=== PATIENT | female | born 1955 | race Caucasian/White ===

== ENCOUNTER 2018-05-18 06:03 | Inpatient (IN) | payer BC ==
[~2018-05-18 06:03] MED LIST: Buffered Lidocaine 0.9% SYRIN* 5 ML/SYR SYRINGE INTRADERM ONE; Dexamethasone TAB* 4 MG PO ONE; DiMENhydriNATE IV* 50 MG/ML VIAL IV PUSH PRN; Famotidine IV* 10 MG/ML 2 ML (20 mg) IV ONE; Gabapentin CAP(*) 300 MG PO ONE; Morphine VIAL* 4 MG/ML VIAL (1 ml vial) IV PRN; Naloxone* 0.4 MG/ML 1 ML VIAL IV PRN; Ondansetron TAB* 4 MG PO ONE; PROCHLORPERAZINE INJ 5 MG/ML 2 ML VIAL IV PRN; Scopolamine 1.5 mg* PATCH TRANSDERM PRN; Tranexamic Acid 1,000 MG in NS 0.9% 50 ML* (outpatient use) IV SCH; fentaNYL* 50 MCG/ML 2 ML VIAL (100 MCG VIAL) IV PRN; oxyCODONE/Acetamin 5/325 MG* TAB PO PRN
[2018-05-18] MEDS ORDERED: Famotidine IV* 10 MG/ML 2 ML (20 mg) ONE (06:11)
[2018-05-18] MEDS ORDERED: Ondansetron ODT TAB* 4 MG ONE (06:11)
[2018-05-18] MEDS ORDERED: Dexamethasone TAB* 4 MG ONE (06:11)
[2018-05-18] MEDS ORDERED: Clindamycin 900 MG/D5W BAG(*) 900 MG/50 ML BAG IVPB ONE (06:12)
[2018-05-18] MEDS ORDERED: Gabapentin CAP(*) 300 MG ONE (06:12)
[2018-05-18] MEDS ORDERED: fentaNYL* 50 MCG/ML 2 ML VIAL (100 MCG VIAL) ONE ×3 (07:04→09:07)
[2018-05-18] MEDS ORDERED: KETAMINE HCL* 50 MG/ML 10 ML VIAL ONE (07:04)
[2018-05-18] MEDS ORDERED: Midazolam* 1 MG/ML 5 ML VIAL (5 MG) ONE (07:04)
[2018-05-18] MEDS ORDERED: Atracurium* 10 MG/ML 10 ML VIAL ONE (07:09)
[2018-05-18] MEDS ORDERED: Bupivacaine 0.25% EPI 200,000* 30 ML SDV ONE ×2 (07:22→10:22)
[2018-05-18] MEDS ORDERED: Bupivacaine 0.5% SDV PF* 30ML VIAL ONE (08:41)
[2018-05-18] MEDS ORDERED: Glycopyrrolate IV* 0.2 MG/ML 1 ML VIAL ONE (08:41)
[2018-05-18] MEDS ORDERED: EPHEDrine (Pressors)* 50 MG/ML VIAL ONE (08:41)
[2018-05-18] MEDS ORDERED: Phenylephrine IV* 40 MCG/ML 10 ML SYRINGE ONE (08:41)
[2018-05-18] MEDS ORDERED: Propofol* 10 MG/ML 20 ML BTL IV PUSH ONE (08:41)
[2018-05-18] MEDS ORDERED: Lidocaine 2% PF * 5 ML VIAL ONE (08:41)
[2018-05-18] MEDS ORDERED: Morphine VIAL* 10 MG/ML 1 ML VIAL ONE (10:11)
[2018-05-18] MEDS ORDERED: Ketorolac INJ* 30 MG/ML 1 ML VIAL ONE (10:29)
[2018-05-18] MEDS ORDERED: hydrALAZINE IV* 20 MG/ML VIAL ONE (10:31)
[2018-05-18] MEDS ORDERED: Phenylephrine INJ* 10 MG/ML 1 ML VIAL (10 MG) ONE (10:31)
[2018-05-18] MEDS ORDERED: Labetalol IV* 5 MG/ML 20 ML VIAL ONE (10:31)
[2018-05-18] MEDS ORDERED: Ondansetron INJ* 2 MG/ML VIAL IV PRN (10:39)
[2018-05-18] MEDS ORDERED: Cyclobenzaprine TAB* 10 MG PO PRN (10:39)
[2018-05-18] MEDS ORDERED: Bisacodyl SUPP* 10 MG SUPP PR PRN (10:39)
[2018-05-18] MEDS ORDERED: oxyCODONE/Acetamin 5/325 MG* TAB PO PRN (10:39)
[2018-05-18] MEDS ORDERED: Acetaminophen TAB* 325 MG PO PRN (10:39)
[2018-05-18] MEDS ORDERED: diPHENhydraMINE IV* 50 MG/ML 1 ml VIAL (BENADRYL) IV PRN (10:39)
[2018-05-18] MEDS ORDERED: Magnesium Hydroxide LIQ* 30 ML UDC PO PRN (10:39)
[2018-05-18] MEDS ORDERED: Morphine INJ* 4 MG/ML 1 ML SYRINGE (NEW SYRINGE VERSION) IV PRN (10:39)
--- NOTE | 2018-05-18 12:08 | RAD ---
Indication: Postop RIGHT total knee replacement. Comparison: March 02, 2017 Technique: RIGHT knee: AP and crosstable lateral views. Report: Total knee prosthesis in place with normal alignment. No periprosthetic fracture evident. Diffuse soft tissue edema and emphysema. Anterior cutaneous olinda. IMPRESSION: #. Unremarkable immediate postop appearance of RIGHT total knee prosthesis.
[2018-05-18] MEDS: oxyCODONE/Acetamin 5/325 MG* TAB PO PRN ×2 (16:21→21:36)
[2018-05-18] MEDS: ceFAZolin 1 GM in Dextrose (*) 1 GM/50 ML BAG IVPB SCH (17:13)
[2018-05-18] MEDS: Docusate CAP* 100 MG PO SCH (21:37)
[2018-05-18] MEDS: Magnesium Hydroxide LIQ* 30 ML UDC PO SCH (21:37)
[2018-05-18] MEDS: Nicotine Patch Removal NOTE PATCH OFF SCH (21:38)
--- NOTE | 2018-05-18 23:02 | CONS ---
CC: Dr. Celena Griffith* CONSULTATION REPORT: DATE OF CONSULT: 05/18/18 PROVIDER: Laila Krueger NP ATTENDING PHYSICIAN: Dr. Amanda (report dictated by Laila Krueger NP) PRIMARY CARE PROVIDER: Dr. Celena Griffith. REFERRING PHYSICIAN: Dr. Merino. REASON FOR CONSULT: Co-medical management. HISTORY OF PRESENT ILLNESS: Ms. Aguilar is a 63-year-old female with a past medical history of hypertension and osteoarthritis, who underwent a right total knee arthroplasty today with orthopedic surgeon, Dr. Merino. Hospital Medicine was asked to co-medical manage. The patient was seen and evaluated at her bedside where she was found to be sitting up in chair, alert and oriented x3 with family at the bedside. She reports that she feels that she is doing well postoperatively and does report some right knee pain 7/10. She reports otherwise that she feels that she is doing well. She denies any fevers, chills , nausea, vomiting. Reports she is tolerating liquids and food well. PAST MEDICAL HISTORY: 1. Hypertension. 2. Osteoarthritis. 3. Current tobacco abuse. PAST SURGICAL HISTORY: 1. Umbilical hernia repair. 2. Right carpal tunnel release. CURRENT MEDICATIONS: 1. Acetaminophen 650 mg p.o. q.8 hours p.r.n. 2. Apixaban 2.5 mg p.o. b.i.d. 3. Dulcolax suppository p.r.n. 4. Flexeril 5 mg p.o. t.i.d. 5. Colace 100 mg p.o. b.i.d. 6. LR 75 mL an hour. 7. Lactulose 30 mL p.o. q.6 hours p.r.n. constipation. 8. Losartan potassium 50 mg p.o. q.a.m. 9. Morphine 2 mg IV q.2 hours p.r.n. 10. Nicotine patch 21 mg/24 hours. 11. Zofran 4 mg IV q.4 hours p.r.n. 12. Oxycodone HCl 10 mg p.o. q.4 hours p.r.n. 13. Percocet 5/325 mg 1 to 2 tabs p.o. q.4 hours p.r.n. 14. Scopolamine patch q.72 hours. ALLERGIES: PENICILLIN, STATINS. FAMILY HISTORY: Reviewed and noncontributory. SOCIAL HISTORY: The patient currently smokes 1 pack of cigarettes a day. She is a long-term smoker. 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 She lives at home with her , who is her healthcare proxy. Occasional alcohol use. REVIEW OF SYSTEMS: A 14-point of review of systems was performed. All the pertinent positives and negatives as mentioned in the history of present illness , otherwise are negative. PHYSICAL EXAM: Vital Signs: Temperature 97.5, heart rate 83, respirations 22, O2 sat 100% on room air, blood pressure 133/71. General Appearance: A well- developed 62-year-old female sitting up in the chair, alert and oriented x3, in no acute distress. HEENT: Head is normocephalic, atraumatic. Pupils are equal and reactive to light. Oropharynx is clear. Moist mucous membranes. Cardiac: S1, S2. Regular rate and rhythm. No murmurs, rubs, or gallops appreciated. Lungs are clear to auscultation bilaterally. Good aeration throughout. Abdomen: Soft, nontender, nondistended. Normal bowel sounds throughout. Extremities: 2+ DP pulses bilaterally. right knee with boy bandage and cryo unit intact. Extremities are warm and well perfused. Neuro: Alert and oriented x3. No focal deficits noted. ASSESSMENT AND PLAN: Ms. Aguilar is a 63-year-old female with a past medical history of hypertension, tobacco abuse, osteoarthritis, who underwent an elective right total knee arthroplasty today. Hospital Medicine was asked to co -medical manage. 1. Status post right knee total arthroplasty. Postop day 0. Disposition per Dr. Merino's orthopedic team. Pain management. Bowel regimen. PT/OT. 2. Hypertension. Currently normotensive with blood pressures between 120 and 140. We will continue home medication losartan but we will cut this in half and give her 25 mg in the postoperative phase tomorrow morning. She may require her full home dose. This will need to be reevaluated in the morning. 3. Tobacco abuse. Nicotine replacement. 4. DVT prophylaxis. Apixaban 2.5 mg p.o. b.i.d. per Ortho team. DISPOSITION: Per Ortho team. TIME SPENT: Approximately 45 minutes was spent on this consultation. LAILA KRUEGER, RAILS DEVELOPER [id number]/[facility] #: [id number] [facility]ARG[facility] HOSPITALKianna
[2018-05-19] MEDS: ceFAZolin 1 GM in Dextrose (*) 1 GM/50 ML BAG IVPB SCH ×2 (00:16→08:54)
[2018-05-19] MEDS: oxyCODONE/Acetamin 5/325 MG* TAB PO PRN ×4 (02:31→23:51)
[2018-05-19 05:32] LABS: Hematocrit 37 % (35-47); Hemoglobin 12.8 g/dl (12.0-16.0); Platelet Count 225 10^3/ul (150-450)
[2018-05-19 05:47] LABS: EGFR Non-African American 93.7 (>60)
[2018-05-19] MEDS: oxyCODONE TAB* 5 MG TAB PO PRN ×2 (06:06→11:24)
[2018-05-19] MEDS: Nicotine PATCH 21 MG/24 HR* PATCH TRANSDERM SCH (08:56)
[2018-05-19] MEDS: Docusate CAP* 100 MG PO SCH ×2 (08:58→20:39)
[2018-05-19] MEDS: Magnesium Hydroxide LIQ* 30 ML UDC PO SCH ×2 (08:58→20:39)
[2018-05-19] MEDS: Apixaban* 2.5 MG TAB PO SCH ×2 (08:58→20:38)
[2018-05-19] MEDS ORDERED: Losartan TAB* 25 MG PO SCH ×2 (09:00)
--- NOTE | 2018-05-19 09:54 | PN ---
Subjective Date of Service: 05/19/18 Interval History: Pt resting comfortably in chair after participating in PT. Reports that after taking percocet, her leg pain is a dull ache. Says her thinking is "a little fuzzy" in the setting of percocet. Denies chest pain, shortness of breath, N/V/D , abdominal pain, dysuria, dizziness, numbness or tingling of extremities. Objective Active Medications: Acetaminophen (Tylenol Tab*) 650 mg PO Q8H PRN PRN Reason: PAIN OR TEMPERATURE Apixaban (Eliquis) 2.5 mg PO BID [facility] Last Admin: 05/19/18 08:58 Dose: 2.5 mg Bisacodyl (Dulcolax Supp*) 10 mg MT DAILY PRN PRN Reason: constipation Cyclobenzaprine HCl (Flexeril Tab*) 5 mg PO TID PRN PRN Reason: SPASMS Diphenhydramine HCl (Benadryl Iv*) 25 mg IV Q6H PRN PRN Reason: itching Docusate Sodium (Colace Cap*) 100 mg PO BID [facility] Last Admin: 05/19/18 08:58 Dose: 100 mg Lactated Ringer's (Lactated Ringers 1000 Ml Bag*) 1,000 mls @ 75 mls/hr IV PER RATE [facility] Last Admin: 05/19/18 04:10 Dose: 75 mls/hr Lactulose (Lactulose*) 30 ml PO Q6H PRN PRN Reason: constipation Magnesium Hydroxide (Milk Of Magnesia Liq*) 30 ml PO BID [facility] Last Admin: 05/19/18 08:58 Dose: 30 ml Magnesium Hydroxide (Milk Of Magnesia Liq*) 30 ml PO Q6H PRN PRN Reason: constipation Morphine Sulfate (Morphine Inj (Syringe)*) 2 mg IV Q2H PRN PRN Reason: PAIN - SEVERE Nicotine (Nicotine Patch 21 Mg/24 Hr*) 1 patch TRANSDERM DAILY@0800 [facility] Last Admin: 05/19/18 08:56 Dose: 1 patch Ondansetron HCl (Zofran Inj*) 4 mg IV Q6H PRN PRN Reason: nausea Oxycodone HCl (Roxycodone Tab*) 10 mg PO Q4H PRN PRN Reason: PAIN - SEVERE Last Admin: 05/19/18 06:06 Dose: 10 mg Oxycodone/Acetaminophen (Percocet 5/325 Tab*) 1 tab PO Q4H PRN PRN Reason: PAIN Last Admin: 05/19/18 09:01 Dose: 1 tab Oxycodone/Acetaminophen (Percocet 5/325 Tab*) 2 tab PO Q4H PRN PRN Reason: PAIN Last Admin: 05/19/18 02:31 Dose: 2 tab Pharmacy Profile Note (Scopolamine Patch Remove*) 1 note PATCH OFF Q72H ONE Stop: 05/21/18 05:41 Pharmacy Profile Note (Nicotine Patch Removal Note*) 1 note PATCH OFF [address] [place] Last Admin: 05/18/18 21:38 Dose: Not Given Vital Signs - 8 hr 05/19/18 05/19/18 05/19/18 02:00 02:31 04:11 Temperature Pulse Rate Respiratory 16 16 Rate Blood Pressure (mmHg) O2 Sat by Pulse 98 Oximetry 05/19/18 05/19/18 05/19/18 04:14 06:06 07:30 Temperature 98.4 F 98.0 F Pulse Rate 67 60 Respiratory 16 16 18 Rate Blood Pressure 95/79 114/54 (mmHg) O2 Sat by Pulse 100 100 Oximetry 05/19/18 05/19/18 05/19/18 08:00 08:57 09:01 Temperature Pulse Rate Respiratory 18 18 18 Rate Blood Pressure (mmHg) O2 Sat by Pulse 100 Oximetry Oxygen Devices in Use Now: None Eyes: No Scleral Icterus, PERRLA Ears/Nose/Mouth/Throat: NL Teeth, Lips, Gums, Clear Oropharnyx, Mucous Membranes Moist Neck: NL Appearance and Movements; NL JVP, Trachea Midline Respiratory: Symmetrical Chest Expansion and Respiratory Effort, Clear to Auscultation Cardiovascular: NL Sounds; No Murmurs; No JVD, RRR, No Edema Abdominal: NL Sounds; No Tenderness; No Distention Lymphatic: No Auricular Adenopathy Extremities: No Edema, No Clubbing, Cyanosis, - - 2+ DP pulses bilaterally. Able to dorsiflex and plantarflex Skin: No Rash or Ulcers Neurological: Alert and Oriented x 3, NL Sensation, NL Muscle Strength and Tone Lines/Tubes/Other Access: Clean, Dry and Intact Peripheral IV Nutrition: Taking PO's Result Diagrams: 05/19/18 04:59 05/19/18 04:59 Assess/Plan/Problems-Billing Assessment: Pt is a 63 year old female with a PMH HTN, osteoarthritis and tobacco abuse (30 pack year hx) s/ps RIGHT total knee replacement with Dr. Merino on 05/18. POD 1. - Patient Problems (1) Status post total right knee replacement Current Visit: Yes Status: Acute Code(s): Z96.651 - PRESENCE OF RIGHT ARTIFICIAL KNEE JOINT SNOMED Code(s): 7510046651992 Comment: - w/ Dr Merino. POD 1. Plan per ortho. - Pain adequately controlled with Percocet. Continue bowel regimen - H/H 12. today. Will continue to trend H/H. - PT following (2) Hypertension Current Visit: Yes Status: Acute Code(s): I10 - ESSENTIAL (PRIMARY) HYPERTENSION SNOMED Code(s): 27705610 Comment: - Pt has history of HTN on losartan. Losartan being held as BP this morning was 95/79 in the setting of recent surgery/volume loss as well as opioid administration. Most recent BP 114/54. Pt encouraged to increase PO fluid intake. (3) Tobacco abuse Current Visit: Yes Status: Acute Code(s): Z72.0 - TOBACCO USE SNOMED Code( s): 434298576 Comment: - 30 pack year history (4) DVT prophylaxis Current Visit: Yes Status: Acute Code(s): AIC4138 - SNOMED Code(s): 325302156 Comment: - Pt is anticoagulated with eliquis 2.5mg PO BID per ortho (5) Full code status Current Visit: Yes Status: Acute Code(s): Z78.9 - OTHER SPECIFIED HEALTH STATUS SNOMED Code(s): 966083796 Status and Disposition: Plan per primary team Attending: José Miguel Salgado
--- NOTE | 2018-05-19 10:02 | PN ---
Progress Note - Progress Note Date of Service: 05/19/18 SOAP: Subjective: Has been up and walking with PT and nursing. Objective: RLE: - Dressing c/d/i - NVID X-rays from PACU: components well placed Selected Entries 05/19/18 07:30 Temperature 98.0 F Pulse Rate 60 Respiratory 18 Rate Blood Pressure 114/54 (mmHg) O2 Sat by Pulse 100 Oximetry Laboratory Tests 05/19/18 05/19/18 04:59 04:59 Hct 37 Glucose 117 H Assessment: POD 1 R TKA Plan: - Eliquis, SCDs, PT, pain control, antibiotics, PT, OOB, dispo planning - I want Keflex x 5 days for infection prophylaxis because of patient's smoking history - Nicotine patch
[2018-05-19] MEDS: Cephalexin CAP* 500 MG PO SCH ×2 (13:48→20:39)
[2018-05-19] MEDS: Nicotine Patch Removal NOTE PATCH OFF SCH (20:40)
[2018-05-20] MEDS: oxyCODONE/Acetamin 5/325 MG* TAB PO PRN ×2 (03:52→08:14)
--- NOTE | 2018-05-20 05:17 | OP ---
OPERATIVE NOTE: DATE OF OPERATION: 05/18/18 DATE OF : 55 SURGEON: Dr. Alvarado Merino. BOARDING SPECIALIST: EVELYN Ray A physician student assistant was required for the length of the procedure for assistance with positioning, r etraction, instrumentation, and closure. ANESTHESIOLOGIST: Dr. Omega Middleton. ANESTHESIA: General anesthesia, regional anesthesia, local anesthesia. Local anesthesia was 0.25% r opivacaine with epinephrine 40 cc, placed within the joint capsule and in the subcutaneous tissues ab out the skin incision. Regional anesthesia performed by Dr. Middleton was either femoral or an adducto r canal block. PRE-OP DIAGNOSIS: Right knee osteoarthritis. POST-OP DIAGNOSIS: Right knee osteoarthritis. OPERATIVE PROCEDURE: Right total knee arthroplasty. ANTIBIOTICS: Clindamycin 900 mg IV. IV FLUIDS: 2000 cc of crystalloid. ANTI-BLEEDING AGENT: 1 g tranexamic acid provided, IV, just prior to incision. TOURNIQUET TIME: 120 minutes at 300 mmHg. [id number]-OT-DQDL TIME: 126 minutes. PATHOLOGY: Bone and cartilage samples sent to Pathology. URINE OUTPUT: 600 cc. ESTIMATED BLOOD LOSS: 50 cc. COMPLICATIONS: None. IMPLANTS: DePuy Sedrick and Sedrick Attune total knee arthroplasty, cruciate retaining. Femoral cru ciate retaining, size 3, cemented. Tibia, fixed bearing, size 1, cemented. Tibial insert was size 1 0 mm. Patella a 32 mm, medialized. For cement, we used Emma Palacos cement. 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 The patient had suffered pain for 10 years, insufficiently responsive to the full spectrum of treatment, nonoperatively. The patient o pted to have the right knee replaced first. Preoperatively, discussed risks and potential complications of surgery including bleeding, infection, nerve or blood vessel injury, knee stiffness, pain, need for revision surgery, blood clots. DESCRIPTION OF PROCEDURE: The patient signed a written consent in preoperative holding. Operative e xtremity was marked in preoperative holding. Dr. Middleton performed a regional nerve block in preoper ative holding. The patient was taken back to the operating room and placed supine on the operating room table. Gene ral anesthesia was induced. A lateral post was placed along the bed to keep the right lower extremit y in the neutral position. Tourniquet was placed about the right proximal thigh. The right lower ex tremity was prepped and draped with chlorhexidine and then ChloraPrep. Draping was performed. Surgical time-out was performed. The patient's right lower extremity had been placed in a [facility] Kn ee Positioner. Esmarch was applied and the tourniquet was elevated to 300 mmHg. Anterior midline longitudinal skin incision was made. I changed knives and dissected down to the ext ensor mechanism. I marked and then made a right knee medial parapatellar arthrotomy. I fully extended the knee and peeled the anterior capsule off the medial and lateral tibial plateau. Flexed knee to 90 degrees. Removed the ACL. Noted tricompartmental severe osteoarthritis. There w ere particularly large osteophytes along the medial aspect of the medial femoral condyle that clearly increased the length of the medial femoral condyle. Marked canal point with Bovie electrocautery. Removed large osteophytes with rongeur. Drilled the femur with the drill set on ream. Irrigation and aspiration of canal. Distal femoral cut ting guide placed. A pin guide was placed and then removed 9 mm of the distal end of the femur. Sized the femur to a size of 3. I used 4-in-1 cutting guide and I really liked the size of my cuts, anterior to posterior and medial to lateral for sizing. I next placed the external cutting guide for the tibia. All bony prominences marked with a pen. I r emoved approximately 4 mm from the low side, the medial tibial plateau. This much of a cut was requi red to get below the lowest, most sclerotic part of the medial tibial plateau. I confirmed the adequ acy of the cone alignment of my cut several times. I made tibial bone cut after retractors have been placed. I next removed the medial and lateral meniscus with Bovie electrocautery. I removed the posterior os teophytes from the posterior aspect of the distal femur. I next placed a Dogbone sizing guide. An 8 or 10 mm seemed the appropriate bone blocks and showed sy mmetric flexion and extension gaps. I next placed the trial femoral component and drilled the femur. I next sized the tibia to a size 1. I pinned the #[address] I reamed and then punched the tibia. I next fully extended the knee, the patient's patella was quite thin to start, approximately 19 mm de ep. I cut the patella to a depth somewhere between 12 and 13 mm. I sized the patella to a size 32 m m implant. I made holes in the bone. I placed my patella. I debrided some lateral patella with eduardo scott to prevent bony impingement. I placed all trial components and I liked the soft tissue balance of the knee. I mixed cement. Irrigated the knee. I placed bone into the femoral canal to minimize bleeding. I p laced the cement and then components. I placed a 10-mm trial insert while the cement was hardening. After the cement had fully hardened, I irrigated the knee slightly. I then trialed with a 10 and a 12-mm trial. I liked the balance better with the 10-mm. There was still excellent tension in medial and lateral collateral ligaments, excellent range of motions, 0 to 130 degrees, good stability. We then placed the final 10-mm polyethylene component. Irrigation of the knee. Closure of the medial parapatellar arthrotomy with multiple [id number] stitches using Ethibond 0 and then Vicryl 0 suture. Irrigation. Closure of the subcutaneous tissue w ith buried simple stitches using Vicryl 2.0 suture. Closure of the skin with olinda. The tournique t was dropped at 120 minutes. Prior to closure of the arthrotomy, I placed 30 cc of local about the capsule around the knee. Just after closure of the skin, I placed an additional 10 cc of 0.25% ropivacaine with epinephrine. After the staple closure of the skin. I placed a Xeroform, 4x4's, ABD, sterile Webril, and then Naga b andages. We followed this with a cooling unit. The patient was awakened and extubated and taken to the PACU. DISPOSITION: The patient was admitted postoperatively. The patient is to start Eliquis 2.5 mg p.o. b.i.d. the morning following surgery for DVT prophylaxis. Percocet and morphine as needed for pain co ntrol. Physical therapy immediately with weight-bearing as tolerated. Ancef 1 g IV q.8 hours x24 ho urs was supplied. I also wanted an additional 5 days of Keflex because of the patient's voracious smo mary jo habit that predisposes her to a surgical site infection. The patient tolerated Ancef IV postope ratively despite some question of penicillin sensitivity preoperatively. The patient will follow up with me in clinic approximately 14 days postoperatively. She had x-rays in the PACU that showed exce llent placement of components. She will have blood levels checked and vitals monitored postoperative ly. [id number]/[facility] #: [id number]
[2018-05-20 06:17] LABS: Hematocrit 38 % (35-47); Hemoglobin 12.8 g/dl (12.0-16.0); Mean Platelet Volume 8.2 um3 (7.4-10.4); Platelet Count 221 10^3/ul (150-450)
[2018-05-20] MEDS: Nicotine PATCH 21 MG/24 HR* PATCH TRANSDERM SCH (07:10)
[2018-05-20] MEDS: Apixaban* 2.5 MG TAB PO SCH (08:14)
[2018-05-20] MEDS: Cephalexin CAP* 500 MG PO SCH (08:14)
[2018-05-20] MEDS: Docusate CAP* 100 MG PO SCH (08:15)
[2018-05-20] MEDS: Magnesium Hydroxide LIQ* 30 ML UDC PO SCH (08:15)
--- NOTE | 2018-05-20 09:10 | PN ---
Progress Note - Progress Note Date of Service: 05/20/18 SOAP: Subjective: Pt is doing well. Pain is controlled with oral percocet. Doing well with PT. Denies CP/SOB, F/C. Objective: 63 y/o WDWN F NAD, A&Ox3 RLE- dressing changed, inc c/d/i with no sign of infection, calf soft NT, +DF/ PF ankle, +2 DP pulse, SILT distally Vital Signs Temp Pulse Resp BP Pulse Ox 97.7 F 78 18 124/78 98 05/20/18 07:32 05/20/18 07:32 05/20/18 08:14 05/20/18 07:32 05/20/18 07:32 Laboratory Results - last 24 hr 05/20/18 05:45 Hgb 12.8 Hct 38 Plt Count 221 MPV 8.2 Assessment: POD 2 S/P right TKA Plan: Doing well DC to home with VNS today Nicotine patch for smoking cessation keflex x 7 days to prevent infxn percocet for pain eliquis 2.5 q 12 x 4 weeks for dvt prophylaxis F/U 10-14 days post op with Dr. Merino
[2018-05-20 11:24] VITALS: BP 119/59
[2018-05-20] MEDS: oxyCODONE TAB* 5 MG TAB PO PRN (11:27)
--- NOTE | 2018-05-20 22:46 | DS ---
DISCHARGE SUMMARY: DATE OF ADMISSION: 05/18/18 DATE OF DISCHARGE: 05/20/18 ATTENDING SURGEON: Dr. Alvarado Merino* (dictated by EVELYN Fisher). ADMITTING DIAGNOSIS: Status post right total knee arthroplasty for severe right knee osteoarthritis. SECONDARY DIAGNOSES: 1. Hypertension. 2. Osteoarthritis. 3. Current tobacco use. CONSULTATIONS: PT/OT, Medicine. HISTORY OF PRESENT ILLNESS: Ms. Aguilar is a 63-year-old female, who presented to the clinic for right knee pain due to severe osteoarthritis. She failed conservative measures and has therefore agreed to undergo right total knee arthroplasty with Dr. Merino on 05/18/18. HOSPITAL COURSE: Ms. Aguilar [place] [facility] and underwent a right total knee arthroplasty. Postoperatively, she recovered on the short- stay surgical unit. Post day 1, the Garcia was removed, she is able to urinate on her own. She advanced to a regular diet without difficulty. Pain was controlled with oral Percocet and she was restarted on home medications. Labs and vitals remained stable. She was able to weight bear as tolerated on the right lower extremity. She advanced appropriately with physical therapy and occupational therapy. DVT prophylaxis was managed with Eliquis. By postop day 2, she was orthopedically and medically stable to discharge to home with [facility]. PHYSICAL EXAMINATION: General: A 63-year-old well-developed, well-nourished female, in no acute distress. Alert and oriented x3. Vital Signs: Temperature 98.6, pulse 86, respiratory rate 20, O2 saturation 98%, and blood pressure 119/59. Right lower extremity: Dressing is changed. Incision is clean , dry, and intact. No sign of infection. Able to dorsiflex, plantar flex the ankle. +2 DP pulse. Sensation intact to light touch distally. Calf soft and nontender. DISCHARGE CONDITION: Stable. DISCHARGE MEDICATIONS: Home medications continued on discharge to include: 1. Aspirin 81 mg 1 by mouth in the morning. The patient was encouraged to discontinue this while on the Eliquis. 2. Tollhouse 3 fish oil 1 capsule by mouth in the morning. 3. Multivitamin 1 by mouth in the morning. 4. Melatonin 3 mg by mouth at bedtime. 5. Losartan 50 mg 1 by mouth in the morning. 6. Glucosamine 1 capsule by mouth in the morning. 7. Diclofenac 50 mg by mouth in the morning as needed for pain. The patient was told not to take this while on the Eliquis. 8. Vitamin D3 1000 units 1 by mouth in the morning. 9. Tylenol 650 by mouth in the morning as needed. New medications on discharge to include: 1. Eliquis 2.5 mg by mouth twice a day for DVT prophylaxis. 2. Keflex 500 mg by mouth 3 times a day x1 week to prevent infection. 3. Nicotine 21 mg for 24 hours 1 patch transdermal daily. 4. Percocet 5/325 one to two every 4 to 6 hours as needed for pain. DISCHARGE INSTRUCTIONS: The patient is weightbearing as tolerated on the right lower extremity. She should continue physical therapy and occupational therapy as shown and transition to outpatient therapy as soon as possible to call the office for PT script. For wound care, she may shower 3 days postop. No bathing , swimming or submerging the wound. Gentle soap, pat dry, cover with gauze and an Naga wrap. Call the orthopedic office with increased drainage, redness, increased pain or fever greater than 101.5. Go to the ER with shortness of breath, palpitations or chest pain. Diet, regular diet. Increase fluids and fibers to prevent constipation. Use stool softeners as needed and call with no bowel movements within 48 hours. DVT prophylaxis with Eliquis 2.5 mg every 12 hours for 4 weeks. She was instructed not to take the diclofenac or aspirin while on Eliquis. She should continue nicotine patches daily to help with smoking cessation. Keflex 500 mg 1 tab by mouth 3 times a day x7 days postop to prevent infection due to her smoking history. Percocet 5/325 one to two every 4 to 6 hours as needed for pain, MDD of 10. Antibiotics required prior to any dental work. She will follow up with Dr. Merino in 2 weeks at which point, the olinda will be removed. EVELYN FISHER [id number]/[facility] #: [id number] [facility] HOSPITALKianna
[2018-05-21] MEDS ORDERED: Scopolamine PATCH Remove* 1 NOTE MISC PATCH OFF ONE (05:40)
== END 2018-05-20 11:32 | disposition home health service (06) | DRG 302 ==
LOC: AA 06:03 → SSU 10:39
PROVIDERS: ADMIT Orthopaedic Surgery; ATTEND Orthopaedic Surgery
PROC: 0SRC0J9 Replacement of Right Knee Joint with Synthetic Substitute, Cemented, Open Approach (ICD-10-PCS; principal; 2018-05-18 07:30)
DX: M17.0 Bilateral primary osteoarthritis of knee (principal); I10 Essential (primary) hypertension; F17.210 Nicotine dependence, cigarettes, uncomplicated; M25.761 Osteophyte, right knee; E78.5 Hyperlipidemia, unspecified; Z80.42 Family history of malignant neoplasm of prostate; Z88.0 Allergy status to penicillin; Z88.8 Allergy status to other drugs, medicaments and biological substances; Z83.3 Family history of diabetes mellitus; Z82.61 Family history of arthritis; Z82.49 Family history of ischemic heart disease and other diseases of the circulatory system; Z83.49 Family history of other endocrine, nutritional and metabolic diseases; Z79.01 Long term (current) use of anticoagulants; Z79.82 Long term (current) use of aspirin
CPT/HCPCS: 36415; 80048; 85014; 85018; 85049; 88305; 88311; A9270-GY; C1776; J0360; J0690; J1885; J2250; J2270; J2704; J3010; J8540

== ENCOUNTER 2018-07-04 07:11 | Inpatient (IN) | payer BC ==
[~2018-07-04 07:11] MED LIST changes: -Dexamethasone TAB* 4 MG PO ONE; -DiMENhydriNATE IV* 50 MG/ML VIAL IV PUSH PRN; -Famotidine IV* 10 MG/ML 2 ML (20 mg) IV ONE; -Gabapentin CAP(*) 300 MG PO ONE; -Morphine VIAL* 4 MG/ML VIAL (1 ml vial) IV PRN; -Naloxone* 0.4 MG/ML 1 ML VIAL IV PRN; -Ondansetron TAB* 4 MG PO ONE; -PROCHLORPERAZINE INJ 5 MG/ML 2 ML VIAL IV PRN; -Scopolamine 1.5 mg* PATCH TRANSDERM PRN; -fentaNYL* 50 MCG/ML 2 ML VIAL (100 MCG VIAL) IV PRN; -oxyCODONE/Acetamin 5/325 MG* TAB PO PRN
--- OUTSIDE RECORDS SUMMARY | 2018-07-04 07:14 | XMS REPORT | Continuity of Care Document ---
:1955 External Reference #:[id number] Author Name Flor Antonio Care Team Providers Name Role Phone Celena Griffith MD Primary Care Physician Unavailable Payers Type Date Identification Numbers Payment Provider Subscriber Effective: 2017 Policy Number: [id number] [facility] Dee Cordero PayID: [id number] [address] [place] [address] Advance Directives Description No Information Available Problems Description No Information Family History Description No Information Available Social History Type Date Description Comments Sex Unknown Lives With Spouse 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 ETOH Use Denies alcohol use Tobacco Use Start: Unknown Patient is a current smoker, smokes every day Smoking Status Reviewed: 06/21/18 Patient is a current smoker, smokes every day Exercise Type/Frequency Does not exercise Allergies, Adverse Reactions, Alerts Date Description Reaction Status Severity Comments 03/02/2017 Penicillin Active 03/02/2017 Statins Active Medications Medication Date Status Form Strength Qnty SIG Indications Ordering Provider Nicotine 05/20/ Active Patches 21mg/24HR 14unit use 1 Transdermal 2017 24HR s patch F System every 24 Angelique, hours Losartan 0000/ Active Tablets 50mg 1 by mouth Unknown Potassium 0000 every day Tylenol 8 Hour 00/00/ Active Tablets ER 650mg one every Unknown Arthritis Pain 0000 6 hours as needed for pains Naproxen Sodium 0000/ Active Tablets 220mg as needed Unknown 0000 Eliquis 05/20/ Hx Tablets 2.5mg 56tabs Take 1 tab 2017 - every 12 F 1114/ hours x 4 Angelique, 2018 weeks Percocet 05/20/ Hx Tablets 5-325mg 30tabs 1 tabs by M17.11 Alvarado 2017 - mouth F 06/20/ every 6 Angelique, 2018 hours as MD needed pain Cephalexin 05/20/ Hx Tablets 500mg 21tabs take 1 by Alvarado 2017 - mouth F 05/27/ three Angelique, 2018 times a MD day x 7 days Diclofenac / Hx Tablets DR 50mg Crepet, Sodium 0000 - MD Celena 2017 Bupropion HCL / Hx Tablets ER 150mg Take 1 Unknown ER (XL) 0000 - 24HR Tablet By Mouth 2018 Daily For 1 Week Then Increase To 2 Tablets Kaye Diclofenac / Hx Tablets DR 75mg take 1 Unknown Sodium 0000 - tablet 05/08/ twice a 2018 day with food Aspir-81 / Hx Tablets DR 81mg 1 by mouth Unknown 0000 - every day 2017 Glucosamine / Hx Capsules 1500Com 2 by mouth Unknown Chondroitin 0000 - every day 1500 Complex 2017 Triamcinolone / Hx Cream 0.5% apply Unknown Acetonide 0000 - twice 05/07/ daily to 2018 the affected area Acetaminophen / Hx Tablets ER 650mg 1 tab by Unknown ER 0000 - mouth as needed 2018 pain Fish Oil / Hx Capsules 1200mg twice a Unknown 0000 - DR day 2017 Vitamin D3 High / Hx Capsules 1000Unit 2 by mouth Unknown Potency 0000 - every day 2017 Multivitamin / Hx Chewtabs once a day Unknown Adult 0000 - 2017 Losartan / Hx Unknown Potassium 0000 - 2017 Diclofenac / Hx Tablets 50mg 1 by mouth Unknown Potassium 0000 - every day 05/07/ as needed 2018 Medications Administered in Office Medication Date Status Form Strength Qnty SIG Indications Ordering Provider Depomedrol Administered Injection Alvarado F 40MG 018 MD Angelique Depomedrol Administered Injection Alvarado F 40MG 018 MD Lionel Merinoomedrol Administered Injection Alvarado F 40MG 017 MD Dionicio Merinorol Administered Injection Alvarado F 40MG 017 MD Angelique Immunizations Description No Information Available Vital Signs Date Vital Result Comment 06/21/2018 1:09pm Height 61 inches 5'1" Weight 155.00 lb Heart Rate 80 /min BP Systolic 138 mmHg BP Diastolic 86 mmHg Respiratory Rate 16 /min Body Temperature 98.8 F Pain Level 0 BMI (Body Mass Index) 29.3 kg/m2 05/29/2018 3:03pm Height 61 inches 5'1" Weight 145.00 lb Heart Rate 88 /min BP Systolic 120 mmHg BP Diastolic 84 mmHg Body Temperature 98.1 F Pain Level 3 BMI (Body Mass Index) 27.4 kg/m2 05/08/2018 8:31am Height 61 inches 5'1" Weight 155.75 lb Heart Rate 78 /min BP Systolic 132 mmHg BP Diastolic 78 mmHg Respiratory Rate 12 /min Pain Level 3 BMI (Body Mass Index) 29.4 kg/m2 03/19/2018 3:51pm Height 61 inches 5'1" Weight 160.00 lb BP Systolic 134 mmHg BP Diastolic 90 mmHg Respiratory Rate 18 /min Body Temperature 98.7 F Pain Level 7 BMI (Body Mass Index) 30.2 kg/m2 11/16/2017 8:09am Height 61 inches 5'1" Heart Rate 77 /min BP Systolic 126 mmHg BP Diastolic 76 mmHg Respiratory Rate 16 /min Body Temperature 97.1 F Pain Level 5 07/11/2017 8:04am Height 61 inches 5'1" Weight 157.00 lb Heart Rate 62 /min Respiratory Rate 16 /min Pain Level 1 BMI (Body Mass Index) 29.7 kg/m2 05/01/2017 2:23pm Height 61 inches 5'1" Weight 160.00 lb Heart Rate 82 /min BP Systolic 149 mmHg BP Diastolic 89 mmHg Pain Level 0 BMI (Body Mass Index) 30.2 kg/m2 03/02/2017 10:52am Height 61 inches 5'1" Weight 161.00 lb BP Systolic 143 mmHg BP Diastolic 87 mmHg Respiratory Rate 15 /min Pain Level 7 BMI (Body Mass Index) 30.4 kg/m2 Results Test Date Facility Test Result H/L Range Note CBC Auto Diff 05/08/2018 [facility] White Blood 7.9 10^3/uL N 3.5-10.[address] [place] [address] [phone] Red Blood Count 4.96 10^6/uL N 4.00-5.40 Hemoglobin 15.3 g/dL N 12.0-16.0 Hematocrit 46 % N 35-47 Mean Corpuscular Volume 92 fL N 80-97 Mean Corpuscular Hemoglobin 31 pg N 27-31 Mean Corpuscular HGB Conc 34 g/dL N 31-36 Red Cell Distribution Width 13 % N 10.5-15 Platelet Count 287 10^3/uL N 150-450 Mean Platelet Volume 8.0 um3 N 7.4-10.4 Abs Neutrophils 5.4 10^3/uL N 1.5-7.7 Abs Lymphocytes 1.9 10^3/uL N 1.0-4.8 Abs Monocytes 0.5 10^3/uL N 0-0.8 Abs Eosinophils 0.1 10^3/uL N 0-0.6 Abs Basophils 0.1 10^3/uL N 0-0.2 Abs Nucleated RBC 0 10^3/uL Granulocyte % 68.2 % N 38-83 Lymphocyte % 24.0 % Low 25-47 Monocyte % 6.0 % N 0-7 Eosinophil % 0.9 % N 0-6 Basophil % 0.9 % N 0-2 Nucleated Red Blood Cells % 0.1 Inr/Protime 05/08/2018 [facility] Inr 0.91 N 0.77-1.[address] [place] [address] [phone] Laboratory test 05/08/2018 [facility] Partial 31.8 seconds N 26.0-36.[address] [place] [address] PTT [phone] Comp Metabolic 05/08/2018 [facility] Sodium 139 mmol/L N 135- [address] [place] [address] [phone] Potassium 3.9 mmol/L N 3.5-5.0 Chloride 103 mmol/L N 101-111 Co2 Carbon Dioxide 29 mmol/L N 22-32 Anion Gap 7 mmol/L N 2-11 Glucose 126 mg/dL High 70-100 Blood Urea Nitrogen 8 mg/dL N 6-24 Creatinine 0.69 mg/dL N 0.51-0.95 BUN/Creatinine Ratio 11.6 N 8-20 Calcium 9.5 mg/dL N 8.6-10.3 Total Protein 6.8 g/dL N 6.4-8.9 Albumin 4.4 g/dL N 3.2-5.2 Globulin 2.4 g/dL N 2-4 Albumin/Globulin Ratio 1.8 N 1-3 Total Bilirubin 0.40 mg/dL N 0.2-1.0 Alkaline Phosphatase 91 U/L N 34-104 Alt 14 U/L N 7-52 Ast 17 U/L N 13-39 Egfr Non- 85.9 >60 Egfr 104.0 >60 1 Type & Screen 05/08/2018 [facility] Patient Blood Type O Positive [address] [place] [address] [phone] Antibody Screen NEGATIVE Urinalysis Profile 05/08/2018 [facility] Urine Color Yellow [address] [place] [address] [phone] Urine Appearance Clear Urine Specific [place] 1.015 N 1.010-1.030 Urine pH 5.0 N 5-9 Urine Urobilinogen Negative Negative Urine Ketones Negative Negative Urine Protein Negative Negative Urine Leukocytes Trace Abnormal Negative Urine Blood Negative Negative Urine Nitrite Negative Negative Urine Bilirubin Negative Negative Urine Glucose Negative Negative Urine White Blood Cell Trace(0-5/hpf) Absent Urine Red Blood Cell Trace(0-2/hpf) Absent Urine Bacteria 1+ Abnormal Absent Urine Squamous Epithelial Cell Present Abnormal Absent Urine Hyaline Casts Present Abnormal Absent Urine Culture And 05/08/2018 [facility] Urine Culture SEE RESULT [address] [place] [address] [phone] 1 Because ethnic data is not always readily available, this report includes an eGFR for both -Americans and non- Americans. The National Kidney Disease Education Program (NKDEP) does not endorse the use of the MDRD equation for patients that are not between the ages of 18 and 70, are , have extremes of body size, muscle mass, or nutritional status, or are non- or non-. According to the National Kidney Foundation, irrespective of diagnosis, the stage of the disease is based on the level of kidney function: Stage Description GFR(mL/min/1.73 m(2)) 1 Kidney damage with normal or decreased GFR 90 2 Kidney damage with mild decrease in GFR 60-89 3 Moderate decrease in GFR 30-59 4 Severe decrease in GFR 15-29 5 Kidney failure <15 (or dialysis) 2 SEE RESULT BELOW Name: DEE CORDERO : [address]: Alvarado Merino MD Acct: [id number] Unit: [id number] AGE: 63 Location: PAT Re05/08/18 SEX: F Status: REG REF SPEC: [id number] DANIEL: 05/08/[address] [facility] DR: Alvarado Merino MD REQ: [id number] RECD: 05/08/18 STATUS: HOLLY CARDOZA DR: Celena Griffith MD _ SOURCE: URINE SPDESC: ORDERED: Urine Culture Procedure Result Reported Site Urine Culture Final 05/09/18- 1253 ML No growth of clinically significant organisms * ML - Main Lab . END OF REPORT DEPARTMENT OF PATHOLOGY, [address] [place] [address] Jon Woodard M.D. Director [facility] # [id number] Procedures Date Code Description Status 05/18/2018 73179 TKR Total Knee Replacement Completed 05/18/201855967 TKR Total Knee Replacement Completed 11/16/201792199 Inject/Drain Joint/Bursa Major W/O US Completed 03/02/201710022 Inject/Drain Joint/Bursa Major W/O US Completed 03/02/201743574 Inject/Drain Joint/Bursa Major W/O US Completed Encounters Type Date Location Provider Dx Diagnosis Office Visit 05/19/2018 [facility] Radha Z96.651 Presence of right 11:59a Assoc,marky Esparza NP artificial knee Hospitalists joint I10 Essential (primary) hypertension Z72.0 Tobacco use Office Visit 05/18/2018 [facility] Laya Z96.651 Presence of 11:59a Assoc,marky Godfrey ROOM MAID right artificial Hospitalists knee joint I10 Essential (primary) hypertension Z72.0 Tobacco use Office Visit 03/19/2018 [facility] M17.0 Bilateral primary 3:30p Services Of MD Angelique osteoarthritis of [facility] knee M25.561 Pain in right knee M25.562 Pain in left knee Office Visit 11/16/2017 [facility] Hight[facility] M17.0 Bilateral primary 8:00a Services Of MD Angelique osteoarthritis of [place] knee Office Visit 07/11/2017 Eric Hightower M17.0 Bilateral primary 8:00a Services Of MD Angelique osteoarthritis of [place] knee Office Visit 05/01/2017 [facility] Alvarado Hightower M17.11 Unilateral primary 2:15p Services Of MD Angelique osteoarthritis, [facility] right knee M17.12 Unilateral primary osteoarthritis, left knee M17.0 Bilateral primary osteoarthritis of knee Office Visit 03/02/2017 [facility] Alvarado Hightower M17.11 Unilateral primary 10:30a Services Of MD Angelique osteoarthritis, [facility] right knee M17.12 Unilateral primary osteoarthritis, left knee Plan of Treatment Future Appointment(s):07/17/2018 1:00 pm - Alvarado Merino MD at [facility]07/04/2018 9:45 am - KIMBERLY Wesley at [facility]07/04/2018 9:45 am - Alvarado Merino MD at [facility]
[2018-07-04] MEDS ORDERED: Buffered Lidocaine 0.9% SYRIN* 5 ML/SYR SYRINGE ONE (08:14)
[2018-07-04] MEDS ORDERED: Clindamycin 900 MG/D5W BAG(*) 900 MG/50 ML BAG IVPB ONE (08:14)
[2018-07-04] MEDS ORDERED: Midazolam* 1 MG/ML 2 ML VIAL (2 MG) ONE (08:57)
[2018-07-04] MEDS ORDERED: fentaNYL* 50 MCG/ML 2 ML VIAL (100 MCG VIAL) ONE ×2 (08:57)
[2018-07-04] MEDS ORDERED: Bupivacaine 0.25% W/EPI* 10 ML SDV ONE ×2 (09:37→12:23)
[2018-07-04] MEDS ORDERED: ROPIVACAINE 5 MG/ML 30 ML BTL (0.5%) ONE (09:50)
[2018-07-04] MEDS ORDERED: Propofol* 10 MG/ML 20 ML BTL ONE (10:14)
[2018-07-04] MEDS ORDERED: Ondansetron INJ* 2 MG/ML VIAL ONE (10:14)
[2018-07-04] MEDS ORDERED: Dexamethasone IV* 4 MG/ML 1 ML (4 MG) ONE (10:14)
[2018-07-04] MEDS ORDERED: EPHEDrine (Pressors)* 50 MG/ML VIAL ONE (10:18)
[2018-07-04] MEDS ORDERED: Acetaminophen TAB* 325 MG PO PRN (11:17)
[2018-07-04] MEDS ORDERED: oxyCODONE TAB* 5 MG TAB PO PRN (11:17)
[2018-07-04] MEDS ORDERED: Naloxone* 0.4 MG/ML 1 ML VIAL IV PRN (11:17)
[2018-07-04] MEDS ORDERED: Ketorolac INJ* 30 MG/ML 1 ML VIAL IV PRN (11:17)
[2018-07-04] MEDS ORDERED: HYDROmorphone INJ1* 1 MG/ML SYRINGE IV PRN (11:17)
[2018-07-04] MEDS ORDERED: HYDROmorphone INJ1* 1 MG/ML SYRINGE ONE (11:46)
[2018-07-04] MEDS ORDERED: Cyclobenzaprine TAB* 10 MG PO PRN (12:52)
[2018-07-04] MEDS ORDERED: Ondansetron INJ* 2 MG/ML VIAL IV PRN (12:52)
[2018-07-04] MEDS ORDERED: diPHENhydraMINE IV* 50 MG/ML 1 ml VIAL (BENADRYL) IV PRN (12:52)
[2018-07-04] MEDS ORDERED: Magnesium Hydroxide LIQ* 30 ML UDC PO PRN (12:52)
[2018-07-04] MEDS ORDERED: Bisacodyl SUPP* 10 MG SUPP PR PRN (12:52)
[2018-07-04] MEDS ORDERED: Polyethylene Glycol 3350* 17 GM PACKET PO PRN (12:52)
[2018-07-04] MEDS ORDERED: Morphine VIAL* 4 MG/ML VIAL (1 ml vial) IV PRN (12:52)
[2018-07-04] MEDS ORDERED: diPHENhydraMINE PO* 25 MG PO PRN (12:52)
[2018-07-04] MEDS ORDERED: Acetaminophen TAB* 325 MG PO SCH (13:00)
[2018-07-04] MEDS ORDERED: oxyCODONE/Acetamin 5/325 MG* TAB ONE (14:30)
[2018-07-04] MEDS: oxyCODONE/Acetamin 5/325 MG* TAB PO PRN ×3 (14:33→22:08)
[2018-07-04] MEDS: Nicotine PATCH 7 MG/24 HR* PATCH TRANSDERM SCH (14:40)
[2018-07-04] MEDS: Nicotine PATCH 7 MG/24 HR* PATCH ONE ×2 (14:40→15:44)
[2018-07-04] MEDS: Acetaminophen TAB* 325 MG PO SCH ×2 (15:19→22:32)
[2018-07-04] MEDS: Clindamycin 600 MG IVPREMIX(* 600 MG/50 ML SDV IV SCH (18:11)
[2018-07-04] MEDS: oxyCODONE TAB* 5 MG TAB PO PRN (19:41)
[2018-07-04] MEDS: Magnesium Hydroxide LIQ* 30 ML UDC PO SCH (22:07)
[2018-07-04] MEDS: Docusate CAP* 100 MG PO SCH (22:07)
[2018-07-04] MEDS: traMADol TAB* 50 MG PO PRN (22:08)
[2018-07-05] MEDS: oxyCODONE TAB* 5 MG TAB PO PRN ×3 (00:11→13:28)
[2018-07-05] MEDS: Clindamycin 600 MG IVPREMIX(* 600 MG/50 ML SDV IV SCH ×2 (02:29→10:17)
[2018-07-05] MEDS: oxyCODONE/Acetamin 5/325 MG* TAB PO PRN ×4 (02:30→15:20)
[2018-07-05 05:29] LABS: Hematocrit 35 % (35-47); Hemoglobin 11.4 g/dl (12.0-16.0); Mean Platelet Volume 7.4 fL (7.4-10.4); Platelet Count 270 10^3/ul (150-450)
[2018-07-05] MEDS: Acetaminophen TAB* 325 MG PO SCH ×2 (05:34→12:30)
[2018-07-05 05:46] LABS: EGFR Non-African American 81.8 (>60)
[2018-07-05] MEDS: traMADol TAB* 50 MG PO PRN ×2 (07:29→13:29)
[2018-07-05] MEDS ORDERED: Apixaban* 2.5 MG TAB PO SCH (09:00)
[2018-07-05] MEDS ORDERED: Losartan TAB* 25 MG PO SCH (09:00)
[2018-07-05] MEDS: Magnesium Hydroxide LIQ* 30 ML UDC PO SCH (09:26)
[2018-07-05] MEDS: Docusate CAP* 100 MG PO SCH (09:26)
--- NOTE | 2018-07-05 11:33 | PN ---
Progress Note - Progress Note Date of Service: 07/05/18 SOAP: Subjective: []Patient seen and examined at bedside. She is feeling quite well with well controlled knee pain. Denies CP, SOB, dizziness, nausea. Objective: []General: Well appearing, NAD LLE: Left knee dressing CDI, cryo unit in use. Thigh is soft, df/pf intact, sensation intact distally, DP2+, capillary refill less than two seconds distally Calves supple and nontender without erythema, edema or palpable cords Assessment: []POD 1 sp left total knee arthroplasty Plan: []WBAT PT/OT eliquis 2.5 mg po BID for [address] Merino 10-14 days Had RTK done 6 weeks ago, familiar with recovery period and feeling very well. She will participate with afternoon PT and decide if she would like to DC home today or tomorrow morning. She strongly desires home PT for a few visits then transition to outpatient, which she did after her RTK as well. Vital Signs Temp 97.8 F 07/05/18 08:19 Pulse 72 07/05/18 08:19 Resp 18 07/05/18 09:39 BP 105/59 07/05/18 08:19 Pulse Ox 99 07/05/18 08:19 Intake & Output 07/04/18 07/05/18 07/05/18 18:59 06:59 18:59 Intake Total 2560 1980 240 Output Total 1900 675 20 Balance 660 1305 220 Weight 156 lb Intake: IV Fluids 2200 990 ABX - CLINDAMYCIN 55 LR 2200 935 Oral 360 990 240 Output: Urine 20 Garcia 1900 675 Other: # Bowel Movements 0 Laboratory Last Values Hgb 11.4 g/dl (12.0-16.0) L 07/05/18 05:19 Hct 35 % (35-47) 07/05/18 05:19 Plt Count 270 10^3/ul (150-450) 07/05/18 05:19 MPV 7.4 fL (7.4-10.4) 07/05/18 05:19 Sodium 136 mmol/L (135-145) 07/05/18 05:19 Potassium 4.3 mmol/L (3.5-5.0) 07/05/18 05:19 Chloride 102 mmol/L (101-111) 07/05/18 05:19 Carbon Dioxide 30 mmol/L (22-32) 07/05/18 05:19 Anion Gap 4 mmol/L (2-11) 07/05/18 05:19 BUN 11 mg/dL (6-24) 07/05/18 05:19 Creatinine 0.72 mg/dL (0.51-0.95) 07/05/18 05:19 Est GFR ( Amer) 99.0 (>60) 07/05/18 05:19 Est GFR (Non-Af Amer) 81.8 (>60) 07/05/18 05:19 BUN/Creatinine Ratio 15.3 (8-20) 07/05/18 05:19 Glucose 119 mg/dL (70-100) H 07/05/18 05:19 Calcium 8.7 mg/dL (8.6-10.3) 07/05/18 05:19
[2018-07-05 13:25] VITALS: BP 121/63
[2018-07-05] MEDS: Nicotine PATCH 7 MG/24 HR* PATCH TRANSDERM SCH ×2 (13:28→14:39)
[2018-07-05] MEDS ORDERED: Nicotine Patch Removal NOTE PATCH OFF SCH (16:00)
--- NOTE | 2018-07-06 13:15 | DS ---
DISCHARGE SUMMARY: DATE OF ADMISSION: 07/04/18 DATE OF DISCHARGE: 07/05/18 ATTENDING ORTHOPEDIC PROVIDER AND SURGEON: Dr. Alvarado Merino.* (DICTATED BY EVELYN CHAVARRIA) HISTORY: Ms. Aguilar is a 63-year-old female with years of left knee pain. She failed conservative management and elected to undergo a left total knee arthroplasty. She had a right total knee arthroplasty successfully 6 weeks ago. HOSPITAL COURSE: The patient was admitted to [facility] on . She underwent a left total knee arthroplasty without complication. Postop day 1, she was well appearing, in no acute distress. Left knee dressing today was changed. Incision clean, dry, and intact. Thigh was soft. Dorsiflexion and plantarflexion intact. Sensation intact distally. DP pulse 2+. Capillary refill less than 2 seconds distally. The patient's blood pressure was soft as low as 99/53. She was given a 1000 mL bolus of LR, which improved her blood pressure to 121/63 at the time of discharge. Other vitals included pulse ox 99 , respiratory rate 18, pulse of 72, and temperature 97.8. Hemoglobin 11.4, hematocrit 35. Sodium 136, potassium 4.3. The patient met her goals of physical therapy and was deemed to be medically and orthopedically stable for discharge to home. DISCHARGE MEDICATIONS: Include: 1. Losartan 50 mg p.o. q.a.m. 2. Acetaminophen 650 mg p.o. q.a.m. p.r.n. 3. Nicotine patch 14 mg every 24 hours, to remove the patch daily, place in a new location, may wean down to 7 mg as able. 4. Eliquis 2.5 mg p.o. b.i.d. for 30 days. 5. Docusate 100 mg p.o. b.i.d. 6. Oxycodone 10 mg every 4 hours as needed for pain, max daily dose of 4 tablets. 7. Percocet 5/325, 1 to 2 tabs every 4 to 6 hours as needed for pain, max daily dose of 10. 8. Acetaminophen 975 mg p.o. q.8 hours p.r.n. DISCHARGE PLAN: Percocet 5/325, 1 to 2 tabs every 4 to 6 hours as needed for pain, max of 10 tabs per day. Oxycodone 5 mg tabs, may use 1 tablet as often as every 4 hours for breakthrough pain, max of 4 tabs in a day. This was discussed with the patient. She understands to wean off the oxycodone as soon as she is able and then also wean down on Percocet as pain allows. Hold these medications for sedation. Follow up with Dr. Merino in 2 weeks. DVT prophylaxis, Eliquis 2.5 mg every 12 hours for 4 weeks. Outpatient physical therapy as soon as possible. The patient does have a home physical therapist coming to her home for her first couple of visits and then agrees to transition to outpatient physical therapy. Pain medication and Colace called into [facility]. Due to lack of availability at [facility], Eliquis was called into [facility]. Dee Aguilar was discharged to home. EVELYN CHAVARRIA [id number]/CPS #: [id number] ALICJA
--- NOTE | 2018-07-09 04:08 | OP ---
DATE OF OPERATION: 07/04/18 - ROOM #[id number] DATE OF : 55 SURGEON: Alvarado Merino MD RN NURSERY: EVELYN Martinez. A physician patient observation assistant was required for the length of the procedure for assistance with positioning, retraction, and closure. SECOND RN NURSERY: Pretty Dubose. ANESTHESIOLOGIST: Dr. Marimar Berger MD ANESTHESIA: General anesthesia, regional anesthesia, local anesthesia consisting of 10 cc of 0.25% Marcaine with epinephrine. PRE-OP DIAGNOSIS: Left knee pain and osteoarthritis. POST-OP DIAGNOSIS: Left knee pain and osteoarthritis. OPERATIVE PROCEDURE: Left total knee arthroplasty. IV FLUIDS: 2200 cc crystalloid. ANTIBIOTICS: Ancef 2 g IV. URINE OUTPUT: 1800 cc. TOURNIQUET TIME: 120 minutes at 250 mmHg. VDUM-FQ-FUFG TIME: 117 minutes. SPECIMENS: Bone cuts from left knee. IMPLANTS: DePuy Sedrick and Sedrick ATTUNE cruciate retaining knee, cemented. Femur was a 4 narrow. Tibia was a 2. Fixed platform. Patellar button was a medialized dome, 32 mm. The polyethylene insert was 6 mm. ESTIMATED BLOOD LOSS: Minimal. COMPLICATIONS: None. INDICATIONS FOR PROCEDURE: The patient is a 63-year-old woman, an administrative support specialist at [employer], with a long history of bilateral knee pain and osteoarthritis, who responded insufficiently to nonoperative management and opted to have bilateral knees replaced. The patient underwent uncomplicated right total knee arthroplasty on 06/18/18 and opted for a contralateral left total knee arthroplasty surgery. I discussed risks and potential complications of procedure. DESCRIPTION OF PROCEDURE: In preoperative holding the patient signed a written consent. Operative extremity was marked in preoperative holding. The patient underwent a regional nerve block by Dr. Berger. The patient was taken to the operating room and placed supine on operating room table. The patient was sedated and intubated. A tourniquet was placed about the left proximal thigh. A lateral post was applied to the table. The left lower extremity was prepped and draped. Prep was done with chlorhexidine and ChloraPrep. Draping was performed. I changed my outer gloves. Surgical time-out was performed. Esmarch was applied and tourniquet was elevated to 250 mmHg. Normally, I place this to 300 mmHg. The patient's blood pressure was slightly lower. Anterior knee longitudinal skin incision, standard placement. Changed knives. Dissected down to the extensor mechanism. Marked with a 10 and then made a left knee medial parapatellar arthrotomy. Continued down through the anterior horn of the medial meniscus. Extended knee. I used a Bovie electrocautery to reflect the capsule of the anterior aspect of the medial and lateral tibial plateau. I everted patella. I removed much of the fat deep to the patellar tendon. Removed osteophytes from the patella. Released some lateral retinaculum, undersurface. This is lateral patellofemoral ligament. The patella easily everted and allowed flexion of the knee. Retractor was placed. Significant osteophytosis tri- compartmentally. I removed some osteophytes about the medial femoral condyle, especially peripherally. I marked with Bovie electrocautery the exit of the femoral canal. Reamed femoral canal after having released and removed ACL ligament. Placed fluid, irrigation in the femoral canal and then aspirated it. Placed a distal femoral cutting guide. This came down nicely. I removed 9 mm from the distal end of the femur and 5 degrees of valgus. Applied distal femoral sizing guide with 2 pins. I sized the femur to a 4. Placed 4 and 1 cutting guide and made all the appropriate anterior, posterior, anterior chamfer and posterior chamfer cuts. Removed cutting blocks. I suspected that I would be using a narrow #4 implant. Saved my chamfer anterior bone cuts for later. Rasped the anterior chamfer cut area of the distal femur. Removed some medial tibial plateau osteophytes with rongeur. Placed external tibial alignment guide, made a slaughtered cut, taking 3 mm off of the low side , the medial tibial plateau. This cut was made with 7 degrees of posterior slope. I removed the cut proximal tibial bone in one piece with osteotome. I left some bone intact about the PCL insertion posteriorly. I next removed medial and lateral meniscus with Bovie electrocautery. I next placed a dog bone spacer size 6 mm. This gave me equal flexion and extension gaps of the appropriate amount. I was happy with my bone cuts. I placed an alignment galindo and confirmed excellent angulation of that in the coronal plane on the tibia. I applied a femoral trial and confirmed that I would be wanting a 4 narrow. I drilled the femur through that femoral trial. I next exposed the tibia with appropriate retractors. I sized the tibia to a size 2. The size 2 barely fit, perfectly placing it. I trimmed this and placed and then reamed and punched the proximal tibia. I removed hardware. I next extended the knee. I measured the patella to be 22 mm in depth. I then using freehand technique and an oscillating saw removed the deep side of the patella such that the patella was 12 to 13 mm in depth. I was happy with this. I sized the patella to a 32 mm button. I placed a guided drill 3 holes. Irrigation. I placed my anterior chamfer bone cut to plug up the distal femoral canal. The cement was mixed. It was Palacos Emma cement. We waited 45 seconds from mixing to application. I changed gloves. We applied the tibial component, then the femoral component, then a trial spacer and then the patellar component. We allowed the cement to fully harden. I trialed the knee with a 6-mm insert. I elected and we opened a final 6-mm polyethylene insert which we then placed. Irrigation. Closure of the parapatellar arthrotomy with [id number]-[id number] stitches using Ethibond 0 and then Vicryl 0 sutures. Irrigation. Closure of subcutaneous tissue with buried simple stitches using Vicryl of 2-0 suture. Closure of the skin with olinda. I placed 10 cc of local anesthesia in the subcutaneous tissue of that incision site. Xeroform, 4x4s, ABDs, Naga bandage from foot to proximal thigh. Cooling unit applied to the left knee. DISPOSITION: The patient was admitted postoperatively for physical therapy, IV , and oral pain control, advance of diet, and medical management. X-rays in the PACU showed excellent position of hardware and no fracture. The patient will be discharged to home when she meets appropriate criteria. She will start physical therapy as an outpatient either at home or at a physical therapy center. She was given IV antibiotics 1 g q.8 hours for 24 hours postoperatively. She will be anticoagulated with Eliquis 2.5 mg p.o. b.i.d. starting on postoperative day 1 in the morning. She was also given a short course of oral antibiotics. The patient will follow up with me 14 to 17 days postoperatively in clinic for a wound check. [id number]/[facility] #: [id number] ALICJA
== END 2018-07-05 16:10 | disposition home health service (06) | DRG 302 ==
LOC: AA 07:11 → SSU 12:52
PROVIDERS: ADMIT Orthopaedic Surgery; ATTEND Orthopaedic Surgery
PROC: 0SRD0J9 Replacement of Left Knee Joint with Synthetic Substitute, Cemented, Open Approach (ICD-10-PCS; principal; 2018-07-04 09:15)
DX: M17.12 Unilateral primary osteoarthritis, left knee (principal); I10 Essential (primary) hypertension; Z96.651 Presence of right artificial knee joint; M25.762 Osteophyte, left knee; E78.5 Hyperlipidemia, unspecified; F17.210 Nicotine dependence, cigarettes, uncomplicated; Z88.0 Allergy status to penicillin; Z88.8 Allergy status to other drugs, medicaments and biological substances; Z87.891 Personal history of nicotine dependence; Z80.42 Family history of malignant neoplasm of prostate; Z83.3 Family history of diabetes mellitus; Z82.61 Family history of arthritis; Z82.49 Family history of ischemic heart disease and other diseases of the circulatory system; Z83.49 Family history of other endocrine, nutritional and metabolic diseases
CPT/HCPCS: 36415; 80048; 85014; 85018; 85049; 88305; 88311; A9270-GY; C1776; G8987-GO-CI; G8988-GO-CI; G8989-GO-CI; J1100; J1170; J2250; J2405; J2704; J2795; J3010